=== PATIENT | female | born 1975 | race Caucasian/White ===

== ENCOUNTER 2019-04-23 15:30 | Outpatient (REF) | payer BC, SELFPAY ==
[2019-04-23 21:43] LABS: Anion Gap 8.8 mmol/L (3-11); BUN 16 mg/dL (7-18); CO2 26.2 mmol/L (21.0-32.0); Calcium 8.9 mg/dL (8.5-10.1); Chloride 103 mmol/L (98-107); Glucose 89 mg/dL (70-100); Potassium 4.2 mmol/L (3.5-5.1); Sodium 138 mmol/L (136-145); TSH 2.33 uIU/mL (0.36-3.74)
== END 2019-04-23 15:50 ==
LOC: NCHCN 15:30
PROVIDERS: PCP Registered Nurse; Visit Provider Registered Nurse
DX: E03.9 Hypothyroidism, unspecified (principal); I10 Essential (primary) hypertension
CPT/HCPCS: 80048; 84443

== ENCOUNTER 2021-04-25 11:37 | Outpatient (REF) | payer BC, SELFPAY ==
[2021-04-25 14:45] LABS: Hemoglobin A1C 5.5 % (<5.7)
== END 2021-04-25 11:38 | disposition home or self-care (01) ==
LOC: NCHCN 11:37
PROVIDERS: PCP Registered Nurse; Visit Provider Family Medicine
DX: E03.9 Hypothyroidism, unspecified (principal); I10 Essential (primary) hypertension; E66.9 Obesity, unspecified; Z13.1 Encounter for screening for diabetes mellitus
CPT/HCPCS: 83036; 84443

== ENCOUNTER 2021-06-02 13:51 | Outpatient (REF) | payer BC, SELFPAY ==
--- NOTE | 2021-06-02 13:30 | PAPFT_PTH ---
PATIENT: Lizeth Valera LOC: [facility]#:[id number] AGE/SX: 45/F ROOM: RE06/02/[address]: Nichole Neal : 1975 BED: DIS: 06/02/2021 SPEC #: [id number] RECD: 06/05/21 12:56 STATUS: [place] REAni #: [id number] NOLAN: 06/02/21 13:[address]: Nichole Neal DEPT: [facility] Cytology RECD BY: Emelina King Tissues: 1 - CX/ENDOCX FOR PAP SMEARS Procedures: PAP THIN PREP/[facility] Screening HPV DNA PROBE Comments: [id number]
== END 2021-06-02 13:52 | disposition home or self-care (01) ==
LOC: NCHCN 13:51
PROVIDERS: PCP Registered Nurse; Visit Provider Registered Nurse
DX: Z00.00 Encounter for general adult medical examination without abnormal findings (principal); Z12.4 Encounter for screening for malignant neoplasm of cervix; Z11.51 Encounter for screening for human papillomavirus (HPV)
CPT/HCPCS: 88142; 87624

== ENCOUNTER 2022-06-22 09:57 | Outpatient (REF) | payer BC, SELFPAY ==
[2022-06-22 14:57] LABS: HCT 38.5 % (36.0-46.0); HGB 12.6 g/dL (11.2-15.7); MCH 28.8 pg (27.0-33.0); MCHC 32.7 % (32.0-36.0); MCV 88 fL (80-95); MPV 9.8 fL (8.0-11.0); Platelet Count 328 10^3/uL (130-400); RBC 4.38 10^6/uL (3.93-5.22); RDW 12.4 % (11.7-14.6); RDW-SD 39.7 fL; WBC 6.87 10^3/uL (4.4-10.8)
[2022-06-22 15:50] LABS: ALT 33 U/L (14-59); AST 21 U/L (15-37); Alkaline Phosphatase 66 U/L (46-116); Anion Gap 8.7 mmol/L (3-11); BUN 13 mg/dL (7-18); Bilirubin, Total 0.5 mg/dL (0.2-1.0); CO2 25.3 mmol/L (21.0-32.0); CREATININE 0.8 mg/dL (0.55-1.02); Calcium 8.4 mg/dL (8.5-10.1); Calculated LDL 115 mg/dL (<100); Chloride 100 mmol/L (98-107); Cholesterol 197 mg/dL (<200); Estimated GFR 91.97 (mL/min/1.73m2); Glucose 87 mg/dL (74-106); HDL Cholesterol 63 mg/dL (40-60); Potassium 3.8 mmol/L (3.5-5.1); Sodium 134 mmol/L (136-145); TSH 0.77 uIU/mL (0.36-3.74); Total Protein 7.7 g/dL (6.4-8.2); Triglyceride 96 mg/dL (<150)
[2022-06-25 06:45] LABS: Vitamin D 25 Total 28.2 ng/mL (30-100)
== END 2022-06-22 09:58 | disposition home or self-care (01) ==
LOC: NCHCN 09:57
PROVIDERS: PCP Registered Nurse; Visit Provider Registered Nurse
DX: E03.9 Hypothyroidism, unspecified (principal); E66.9 Obesity, unspecified; Z13.0 Encounter for screening for diseases of the blood and blood-forming organs and certain disorders involving the immune mechanism; Z78.0 Asymptomatic menopausal state; I10 Essential (primary) hypertension
CPT/HCPCS: 80053; 80061; 82306; 85027; 84443

== ENCOUNTER 2022-08-17 15:49 | Outpatient (REF) | payer BC, SELFPAY ==
[2022-08-17 20:57] LABS: Anion Gap 6.6 mmol/L (3-11); BUN 12 mg/dL (7-18); CO2 26.4 mmol/L (21.0-32.0); CREATININE 0.8 mg/dL (0.55-1.02); Calcium 8.5 mg/dL (8.5-10.1); Chloride 100 mmol/L (98-107); Estimated GFR 91.97 (mL/min/1.73m2); Glucose 92 mg/dL (74-106); Sodium 133 mmol/L (136-145)
== END 2022-08-17 15:50 | disposition home or self-care (01) ==
LOC: NCHCN 15:49
PROVIDERS: PCP Registered Nurse; Visit Provider Registered Nurse
DX: I10 Essential (primary) hypertension (principal)
CPT/HCPCS: 80048

== ENCOUNTER 2024-08-03 13:45 | Outpatient (REF) | payer BC, SELFPAY ==
[2024-08-03 15:34] LABS: Anion Gap 10.6 mmol/L (3-11); BUN 13 mg/dL (7-18); CO2 23.4 mmol/L (21.0-32.0); CREATININE 0.8 mg/dL (0.55-1.02); Calcium 8.9 mg/dL (8.5-10.1); Chloride 104 mmol/L (98-107); Estimated GFR 90.83 (mL/min/1.73m2); Glucose 94 mg/dL (74-106); Potassium 4.2 mmol/L (3.5-5.1); Sodium 138 mmol/L (136-145)
== END 2024-08-03 13:46 | disposition home or self-care (01) ==
LOC: NCHCN 13:45
PROVIDERS: PCP Registered Nurse; Visit Provider Family Medicine
DX: I10 Essential (primary) hypertension (principal); E03.9 Hypothyroidism, unspecified
CPT/HCPCS: 80048; 84443